=== PATIENT | female | born 1935 | race Caucasian/White ===

== ENCOUNTER 2016-11-20 13:24 | Emergency (ER) | payer MEDICARE, OTHER ==
[2016-11-20 12:13] LABS: BASOPHILS 0.2 %; BASOPHILS ABSOLUTE 0.04 10/3/uL (0.0-0.16); EOSINOPHILS 0.1 %; EOSINOPHILS ABSOLUTE 0.01 10/3/uL (0.0-0.53); HEMOGLOBIN 12.2 g/dL (12.0-16.0); IMMATURE GRANULOCYTES 0.3 %; IMMATURE GRANULOCYTES ABSOLUTE 0.05 10/3/uL (0.0-0.11); LYMPHOCYTES 13.1 %; LYMPHOCYTES ABSOLUTE 2.14 10/3/uL (0.67-4.30); MEAN CORPUSCULAR HEMOGLOB 30.3 pg (26.0-34.0); MEAN PLATELET VOLUME 10.6 fL (9.2-13.0); MONOCYTES 9.6 %; MONOCYTES ABSOLUTE 1.56 10/3/uL (0.21-1.20); NEUTROPHILS 76.7 %; NEUTROPHILS ABSOLUTE 12.52 10/3/uL (2.02-8.40); PLATELET COUNT 202 10/3/uL (150-400); RBC DISTRIBUTION WIDTH 14.7 % (12.0-16.0); RED CELL COUNT 4.02 10/6/uL (4.0-5.6)
[2016-11-20 12:14] LABS: MANUAL DIFF NO %; WHITE BLOOD CELLS 16.3 10/3/uL (4.5-10.5)
[2016-11-20 12:26] LABS: CALCIUM, SERUM 9.8 MG/DL (8.5-10.4); CHLORIDE, SERUM 101 MMOL/L (96-112); CO2 (CARBON DIOXIDE) 30 MMOL/L (24-34); CREATININE 0.99 MG/DL (0.55-1.02); GFR AFRICAN AMERICAN 63 ML/MIN (>=60); GFR NON AFRICAN AMERICAN 54 ML/MIN (>=60); POTASSIUM, SERUM 3.7 MMOL/L (3.5-5.3); SODIUM, SERUM 140 MMOL/L (135-148)
[2016-11-20 12:29] LABS: LACTATE 1.1 MMOL/L (0.3-2.4)
[2016-11-20 12:33] LABS: BUN (BLOOD UREA NITROGEN) 13 MG/DL (6-23); GLUCOSE, SERUM 114 MG/DL (60-99)
[~2016-11-20 13:24] MED LIST: BENADRYL 50 MG50 MG PO; FISH OIL1200 MG PO; LOP50 PO; SYN112 PO; ULTRAM50 PO; ZOCOR20 PO; ZYRTEC ALLGY10 MG PO
[2016-11-20 13:39] LABS: PROCALCITONIN 0.11 ng/mL (<0.5)
[2016-11-20 14:55] LABS: BE (BASE EXCESS) 2.6 MEQ/L (0 +/- 2.5); HCO3 (ACTUAL BICARBONATE) 25.9 MEQ/L (23-27); INSTRUMENT SERIAL # 8087; PCO2 (CO2 TENSION) 36 MMHG (35-45); PO2 (O2 TENSION) 50 MMHG (79-93); pH 7.48 (7.37-7.43)
[2016-11-20 14:56] LABS: ALLENS TEST Pos; CARBOXYHEMOGLOBIN 1.8 % (0-3); HEMOBLOGIN CONTENT 11.6 G/DL (12-16); METHEMOGLOBIN 0.2 % (0-3); O2 CONTENT 13.8 VOL% (18-24); SAMPLE Arterial
== END 2016-11-20 17:51 | disposition home or self-care (01) ==
LOC: ER 13:24
PROVIDERS: Emergency Medicine
DX: J40 Bronchitis, not specified as acute or chronic (principal); D72.829 Elevated white blood cell count, unspecified; R09.02 Hypoxemia; Z88.5 Allergy status to narcotic agent; Z91.018 Allergy to other foods; Z79.899 Other long term (current) drug therapy; Z85.828 Personal history of other malignant neoplasm of skin
CPT/HCPCS: 36600; 71020; 71275; 80048; 82805; 83605; 84145; 85025; 93005; 94640; 99285; A9270-GY; Q9967